=== PATIENT | male | born 1975 | race Caucasian/White ===

== ENCOUNTER 2024-08-23 09:14 | Day surgery (SDC) | payer OTHER ==
[~2024-08-23 09:14] MED LIST: Metoclopramide 10 MG/2 ML SDV IV PRN; Sodium Chloride 0.9% 1,000 ML IV SCH
[2024-08-23] MEDS: Sodium Chloride 0.9% 1,000 ML IV SCH (09:35)
[2024-08-23] MEDS ORDERED: Propofol 500 MG/50 ML SDV ONE (11:45)
[2024-08-23] MEDS: Metoclopramide 10 MG/2 ML SDV IVPUSH ONE (13:02)
== END 2024-08-23 12:48 | disposition home or self-care (01) ==
LOC: LB.SDS 09:14
PROVIDERS: ATTEND Surgery
DX: Z12.11 Encounter for screening for malignant neoplasm of colon (principal); Z80.0 Family history of malignant neoplasm of digestive organs; I10 Essential (primary) hypertension
CPT/HCPCS: J2704; J7030